=== PATIENT | female | born 1970 | race Caucasian/White ===

== ENCOUNTER 2023-05-07 10:38 | Emergency (ER) | payer BC ==
[2023-05-07] MEDS: methylPREDNISolone Acetate 80 MG/ML SDV IM ONE (11:29)
[2023-05-07] MEDS: methylPREDNISolone Sodium Succinate 125 MG/2 ML SDV IM ONE (11:30)
[2023-05-07] MEDS: HYDROmorphone 2 MG/ML Syringe IM ONE (11:31)
[2023-05-08] MEDS: HYDROmorphone 2 MG/ML Syringe ONE (15:28)
[2023-05-08] MEDS: methylPREDNISolone Sodium Succinate 125 MG/2 ML SDV ONE (15:28)
== END 2023-05-07 11:39 | disposition home or self-care (01) ==
LOC: LB.ED 10:38
DX: S16.1XXA Strain of muscle, fascia and tendon at neck level, initial encounter (principal)
CPT/HCPCS: 96372; 99283; J1170; J2930; 99282